=== PATIENT | male | born 1955 | race Caucasian/White ===

== ENCOUNTER 2021-11-25 09:03 | Inpatient (IN) | payer MEDICARE, OTHER ==
[2021-11-25] MEDS ORDERED: Lactated Ringers 1,000 ML IV ONE (09:08)
[2021-11-25 09:35] LABS: CHLORIDE,CL 97 mEq/L (98-106); SODIUM,NA 140 mEq/L (136-145)
[2021-11-25] MEDS ORDERED: Iopamidol 755 Mg/ML 100 ML Bottle IVPUSH ONE (09:52)
[2021-11-25] MEDS ORDERED: Potassium Chloride 20 MEQ in Premix Bag 1 BAG IV SCH (10:00)
[2021-11-25] MEDS ORDERED: Sodium Chloride 0.9% 1,000 ML IV SCH (10:15)
[2021-11-25] MEDS: Potassium Chloride 20 MEQ in Premix Bag 1 BAG IV SCH ×3 (10:27→15:08)
[2021-11-25] MEDS ORDERED: Levofloxacin/Dextrose 5%-Water 750 MG in Premix Bag 1 BAG IV SCH (11:00)
[2021-11-25 11:17] VITALS: BP 104/72; PULSE 116
[2021-11-25] MEDS ORDERED: Baclofen 10 MG Tab PO SCH (14:00)
== END 2021-11-25 16:00 | DRG 641 ==
LOC: OBSVTOIN 09:03 → CC.MS 09:03 → UNDOADMOB 09:03 → INTOOBSV 09:03 → OBSVTOIN 10:10 → CC.MS 10:10 → UNDOADMOB 10:10 → INTOOBSV 10:10 → UNDODISIN 16:00
PROVIDERS: ADMIT Nurse Practitioner Family; ATTEND Family Medicine
DX: E87.6 Hypokalemia (principal); I95.89 Other hypotension; R13.10 Dysphagia, unspecified; J43.9 Emphysema, unspecified; D18.03 Hemangioma of intra-abdominal structures; K57.30 Diverticulosis of large intestine without perforation or abscess without bleeding; D72.829 Elevated white blood cell count, unspecified; K21.9 Gastro-esophageal reflux disease without esophagitis; R00.0 Tachycardia, unspecified; R63.4 Abnormal weight loss; E86.1 Hypovolemia; Z86.73 Personal history of transient ischemic attack (TIA), and cerebral infarction without residual deficits; Z79.82 Long term (current) use of aspirin; Z68.21 Body mass index [BMI] 21.0-21.9, adult
CPT/HCPCS: 36415; 71260; 74177; 80053; 81001; 82150; 82550; 83605; 83690; 83735; 84484; 85025; 86140; 87040; A9270-GY; J1956; J3480; J7030; J7120; Q9967; U0002

== ENCOUNTER → 2021-11-25 | Day surgery (SDC) | payer MEDICARE, OTHER ==
[~2021-11-25] MED LIST: Lactated Ringers 1,000 ML IV SCH
== END ==
LOC: CC.SDS 07:04
PROVIDERS: ATTEND Family Medicine
DX: R00.0 Tachycardia, unspecified (principal); Z53.09 Procedure and treatment not carried out because of other contraindication
CPT/HCPCS: 93005